=== PATIENT | male | born 1990 | race Caucasian/White ===

== ENCOUNTER 2023-05-25 10:36 | Emergency (ER) | payer SELFPAY | END 2023-05-25 12:00 | disposition home or self-care (01) | LOC: JD.ED 10:36 | DX: H44.601 Unspecified retained (old) intraocular foreign body, magnetic, right eye (principal); Z79.899 Other long term (current) drug therapy; Z18.11 Retained magnetic metal fragments | CPT/HCPCS: 99283 ==